=== PATIENT | male | born 1950 | race Caucasian/White ===

== ENCOUNTER 2019-11-08 09:59 | Emergency (ER) | payer MEDICARE, OTHER ==
[2019-11-08] MEDS ORDERED: Lidocaine 1% with EPINEPHrine 1:100,000 50 ML MDV SUBCUT STA (10:57)
--- NOTE | 2019-11-08 11:15 | EDM.PDOC ---
ED HPI GENERAL MEDICAL PROBLEM - General Chief Complaint: Skin Complaint Stated Complaint: L UNDERARM CYST Time Seen by Provider: 11/08/19 10:49 Source of Information: Reports: Patient, RN Notes Reviewed History Limitations: Reports: No Limitations - History of Present Illness INITIAL COMMENTS - FREE TEXT/NARRATIVE: 68-year-old gentleman presents emergency department a complaint of a lump underneath his left arm states is been there since Tuesday it is red and very painful no fevers Left Arm Pain Score (Numeric/FACES): 5 - Related Data Allergies Allergy/AdvReac Type Severity Reaction Status Date / Time metformin Allergy Other Verified 11/08/19 10:18 pravastatin Allergy Vomiting Verified 11/08/19 10:18 Home Meds: Home Meds Albuterol Sulfate [Albuterol Sulfate HFA] 8.5 gm IH TID PRN 05/24/13 [History] Furosemide [Lasix] 40 mg PO DAILY 05/24/13 [History] Mometasone Furoate [Asmanex] 220 mcg IH DAILY 05/24/13 [History] Nitroglycerin [Nitrostat] 0.4 mg SL ASDIRECTED 05/24/13 [History] Spironolactone [Aldactone] 25 mg PO DAILY 05/24/13 [History] buPROPion HCL [Wellbutrin Sr] 300 mg PO DAILY 05/24/13 [History] carvediloL [Coreg] 6.25 mg PO BID 05/24/13 [History] ALPRAZolam [Alprazolam] 1 mg PO TID PRN 11/08/19 [History] Aspirin 81 mg PO DAILY 11/08/19 [History] Digoxin [Digox] 125 mcg PO DAILY 11/08/19 [History] Fenofibrate Nanocrystallized [Fenofibrate] 145 mg PO DAILY 11/08/19 [History] Past Medical History Cardiovascular History: Reports: Automatic Implantable Cardioverter Defibrillators, Heart Failure, High Cholesterol, Hypertension, Pacemaker, Other (See Below) Other Cardiovascular History: mitral valve disorder Respiratory History: Reports: COPD, Sleep Apnea Other Respiratory History: oxygen at night Musculoskeletal History: Reports: Arthritis, Gout Endocrine/Metabolic History: Reports: Diabetes, Type II Hematologic History: Reports: None Immunologic History: Reports: None Oncologic (Cancer) History: Reports: None Other Dermatologic History: cyst - Infectious Disease History Infectious Disease History: Reports: Chicken Pox, Measles, Mumps - Past Surgical History HEENT Surgical History: Reports: None Cardiovascular Surgical History: Reports: Pacer GI Surgical History: Reports: Colonoscopy Social & Family History - Tobacco Use Smoking Status *Q: Current Every Day Smoker Years of Tobacco use: 50 Packs/Tins Daily: 0.2 - Caffeine Use Caffeine Use: Reports: None - Recreational Drug Use Recreational Drug Use: No ED ROS GENERAL - Review of Systems Review Of Systems: See Below Constitutional: Reports: No Symptoms Skin: Reports: Erythema (Yes) ED EXAM, SKIN/RASH Exam: See Below Text/Narrative:: Examination of the axilla underneath the left arm there is a red fluctuant mass tender to the touch ultrasound reveals a large cavernous area underneath the skin ED SKIN PROCEDURES - I&D Site: Left axilla Skin Prep: Isopropyl Alcohol (Alcohol) Local Anesthesia: Lidocaine: 1% with EPI Local Anesthetic Volume: 2cc Area Incised With: 11 Blade Drainage: Purulent, Large Amount Probed to Break Up Loculations: No Packed With: None Sterile Dressinx4(s) Complications: No Course - Vital Signs Last Recorded V/S: Last Vital Signs Temp 96.7 F L 11/08/19 10:30 Pulse 93 11/08/19 10:30 Resp 22 H 11/08/19 10:30 BP 133/76 11/08/19 10:30 Pulse Ox 93 L 11/08/19 10:30 - Orders/Labs/Meds Meds: Medications Discontinued Medications Generic Name Dose Route Start Last Admin Trade Name Tylerq PRN Reason Stop Dose Admin Lidocaine/Epinephrine 20 ml 11/08/19 10:57 11/08/19 11:04 Xylocaine 1% With Epinephrine 1:100,000 SUBCUT 11/08/19 10:58 2 ml NOW STA Administration Departure - Departure Time of Disposition: 11:14 Disposition: Home, Self-Care 01 Condition: Fair Clinical Impression: Abscess - Discharge Information Instructions: Skin Abscess Referrals: PCP,None [Primary Care Provider] - Additional Instructions: Take full course of antibiotics, please followup with your primary care provider in 3-5 days if not better, please call return to the emergency department with worsening of symptoms. Sepsis Event Note (ED) - Evaluation Sepsis Screening Result: No Definite Risk - Focused Exam Vital Signs: Vital Signs Temp Pulse Resp BP Pulse Ox 06/18/20 10:30 96.7 F L 93 22 H 133/76 93 L 11/08/19 10:14 96.7 F L 93 22 H 133/76 93 L - Assessment/Plan Plan: Assessment Acuity = acute Site and laterality = abscess left axilla Etiology = bacterial cause Manifestations = none Location of injury = Home Lab values = wound culture pending Plan Placed on Bactrim DS 1 tab p.o. twice daily x10 days wound cultures pending Tylenol Motrin as needed for pain control follow-up primary care 3 to 5 days if not better This note was dictated using [employer] voice recognition software please call with any questions on syntax or grammar.
== END 2019-11-08 11:33 | disposition home or self-care (01) ==
LOC: JP.ED 09:59
DX: L02.412 Cutaneous abscess of left axilla (principal); J44.9 Chronic obstructive pulmonary disease, unspecified; I11.0 Hypertensive heart disease with heart failure; I50.9 Heart failure, unspecified; E11.9 Type 2 diabetes mellitus without complications; F17.210 Nicotine dependence, cigarettes, uncomplicated; Z88.8 Allergy status to other drugs, medicaments and biological substances; Z79.899 Other long term (current) drug therapy; Z79.82 Long term (current) use of aspirin
CPT/HCPCS: 10060; 87070; 87077; 87205; 99283; 99283-25

== ENCOUNTER 2020-01-14 06:55 | Day surgery (SDC) | payer OTHER ==
[2020-01-14] MEDS ORDERED: fentaNYL 100 MCG/2 ML SDV ONE (07:47)
[2020-01-14] MEDS ORDERED: Midazolam 1 MG/ML 2 ML SDV ONE (07:47)
[2020-01-14] MEDS ORDERED: Propofol 200 MG/20 ML SDV ONE (07:48)
[2020-01-14] MEDS ORDERED: Sodium Chloride 0.9% 1,000 ML IV SCH (08:00)
--- NOTE | 2020-01-14 12:16 | OR ---
DATE OF PROCEDURE: 01/14/2020 SURGEON: Dandy Whitfield MD PROCEDURE: Colonoscopy. FINDINGS: 1. Transverse colon polyp of approximately 8 mm, completely removed using hot snare wire device. 2. Descending colon polyp #1 of approximately 5 mm, completely removed using cold biopsy forceps. 3. Descending colon polyp #2 of approximately 5 mm, completely removed using cold biopsy forceps. 4. Descending colon polyp of approximately 5 mm, completely removed using cold biopsy forceps. COMPLICATIONS: None. [employer]: None. PREOPERATIVE DIAGNOSIS: Screening colonoscopy/history of colon polyps. POSTOPERATIVE DIAGNOSIS: Screening colonoscopy/history of colon polyps. RISKS: Risks, benefits, alternatives, and limitations including, but not limited to, infection, bleeding, and perforation were explained to the patient, who wished to proceed. PROCEDURE IN DETAIL: The patient was placed in left lateral decubitus position. Digital rectal exam was performed without abnormality. The scope was introduced and advanced atraumatically to the ileocecal valve. The scope was brought back through the ascending, transverse, descending colon, and retroflexed. The aforementioned polyps were identified and completely removed using cold biopsy forceps. No evidence of old or new blood. No diverticulosis. The prep was poor with approximately 90% of the luminal surface could be seen. The polyps were identified and removed as described above. No abnormal bleeding after removal. The patient tolerated procedure well. Dandy Whitfield MD /[id number]
== END 2020-01-14 10:22 | disposition home or self-care (01) ==
LOC: JP.SDS 06:55
PROVIDERS: ATTEND Surgery
DX: Z12.11 Encounter for screening for malignant neoplasm of colon (principal); D12.4 Benign neoplasm of descending colon; I11.0 Hypertensive heart disease with heart failure; I50.40 Unspecified combined systolic (congestive) and diastolic (congestive) heart failure; E78.5 Hyperlipidemia, unspecified; J44.9 Chronic obstructive pulmonary disease, unspecified; Z88.8 Allergy status to other drugs, medicaments and biological substances; Z86.010 Personal history of colon polyps
CPT/HCPCS: 45380; 45385; J2250; J2704; J3010; J7030